=== PATIENT | male | born 1975 | race Caucasian/White ===

== ENCOUNTER 2021-02-16 04:23 | Inpatient (IN) ==
[2021-02-16] MEDS ORDERED: 0.9 % Sodium Chloride 1,000 ML IVC ONE (06:07)
[2021-02-16] MEDS ORDERED: Ketorolac 15 MG/ML VIAL IVP ONE (06:07)
[2021-02-16] MEDS ORDERED: Isovue-370 500 ML BOTTLE IVP ONE (06:07)
[2021-02-16 06:55] LABS: VBG HCO3 26 mEq/L (21-27); VBG PCO2 41 mmHg (41-51); VBG PH 7.41 pH Units (7.32-7.42); VBG PO2 35 mmHg (25-50)
[2021-02-16 07:23] LABS: Alanine Aminotransferase 50 Units/L (7-52); Albumin 3.9 g/dL (3.5-5.7); Albumin/Globulin Ratio 1.2 (1.1-2.2); Alkaline Phosphatase 99 Units/L (34-104); Aspartate Amino Transferase 67 Units/L (13-39); BUN/Creatinine Ratio 11 (6-26); Bilirubin,Direct 0.1 mg/dL (0.0-0.2); Bilirubin,Indirect 0.4 mg/dL (0.0-1.0); Bilirubin,Total 0.5 mg/dL (0.3-1.0); Blood Urea Nitrogen 11 mg/dL (6-20); Carbon Dioxide 26 mEq/L (23-29); Chloride 99 mEq/L (98-107); Globulin 3.2 g/dL (2.4-3.5); Glucose 102 mg/dL (70-105); Osmolality,Calculated 280 (280-300); Potassium 3.4 mEq/L (3.5-5.1); Sodium 135 mEq/L (136-145); Total Protein 7.1 g/dL (6.4-8.9); Troponin I 0.03 ng/mL (< 0.04); eGFR For African Americans > 60 (> 60); eGFR For Non-African Americans > 60 (> 60)
[2021-02-16 08:03] LABS: Basophils % 0.2 %; Eosinophils % 0.4 %; Hematocrit 36.7 % (37.5-50.1); Immature Granulocytes % 0.4 % (0-4); Lymphocytes # 0.9 K/mcL (0.6-4.6); Lymphocytes % 15.6 %; Mean Corpuscular HGB Conc 33.8 g/dL (31.6-35.5); Mean Corpuscular Hemoglobin 30.2 pg (28.0-33.3); Mean Corpuscular Volume 89.3 fL (83.0-100.0); Mean Platelet Volume 9.4 fL (9.4-12.4); Monocytes # 0.6 K/mcL (0.0-1.3); Monocytes % 9.9 %; Neutrophils # 4.1 K/mcL (1.6-8.9); Platelet Count 151 K/mcL (140-400); Red Blood Count 4.11 M/mcL (4.19-5.50); Red Cell Distribution Width 13.2 % (11.5-14.5); Segmented Neutrophils % 73.5 %; White Blood Count 5.6 K/mcL (4.3-11.1)
[2021-02-16 08:11] LABS: Hemoglobin 12.4 g/dL (12.9-16.9)
[2021-02-16 08:12] LABS: Platelet Estimate Normal (Normal); Reactive Lymphocytes Present (Not Present)
[2021-02-16] MEDS ORDERED: Saline Nasal Spray 44 ML BOTTLE NS PRN (12:19)
[2021-02-16] MEDS ORDERED: Remdesivir 200 MG in 0.9 % Sodium Chloride 100 ML IVPB ONE (12:27)
[2021-02-16] MEDS: Cholecalciferol (D-3) 1,000 UNIT (25MCG) TABLET PO SCH (13:27)
[2021-02-16] MEDS: Ipratropium 1 PUFF INHALER IH SCH ×3 (13:55→22:01)
[2021-02-16] MEDS: Artificial Tears SOLN 15 ML BOTTLE BOTH EYES SCH (21:42)
[2021-02-16] MEDS: Chlorhexidine Rinse 15 ML MOUTHWASH MM SCH (21:42)
[2021-02-17] MEDS ORDERED: *HR* HYDROcodone/Acet 5/325 mg TABLET PO PRN (00:28)
[2021-02-17] MEDS: Ipratropium 1 PUFF INHALER IH SCH ×2 (03:21→10:50)
[2021-02-17 04:40] LABS: Basophils % 0.5 %; Hematocrit 39.2 % (37.5-50.1); Immature Granulocytes % 0.7 % (0-4); Lymphocytes # 0.8 K/mcL (0.6-4.6); Lymphocytes % 19.6 %; Mean Corpuscular HGB Conc 33.2 g/dL (31.6-35.5); Mean Corpuscular Hemoglobin 29.7 pg (28.0-33.3); Mean Corpuscular Volume 89.7 fL (83.0-100.0); Mean Platelet Volume 9.8 fL (9.4-12.4); Monocytes # 0.4 K/mcL (0.0-1.3); Monocytes % 9.9 %; Neutrophils # 2.9 K/mcL (1.6-8.9); Platelet Count 198 K/mcL (140-400); Red Blood Count 4.37 M/mcL (4.19-5.50); Red Cell Distribution Width 13.2 % (11.5-14.5); Segmented Neutrophils % 69.3 %; White Blood Count 4.2 K/mcL (4.3-11.1)
[2021-02-17 04:58] LABS: INR 1.2; Prothrombin Time 13.6 Seconds (9.4-12.1)
[2021-02-17 04:59] LABS: Albumin 3.9 g/dL (3.5-5.7); Albumin/Globulin Ratio 1.2 (1.1-2.2); Bilirubin,Direct 0.1 mg/dL (0.0-0.2); Bilirubin,Indirect 0.4 mg/dL (0.0-1.0); Bilirubin,Total 0.5 mg/dL (0.3-1.0); Globulin 3.2 g/dL (2.4-3.5); Total Protein 7.1 g/dL (6.4-8.9)
[2021-02-17 05:02] LABS: % Iron Saturation 17 % (20-55); Alanine Aminotransferase 46 Units/L (7-52); Albumin 3.9 g/dL (3.5-5.7); Albumin/Globulin Ratio 1.2 (1.1-2.2); Alkaline Phosphatase 96 Units/L (34-104); Aspartate Amino Transferase 48 Units/L (13-39); BUN/Creatinine Ratio 12 (6-26); Bilirubin,Total 0.5 mg/dL (0.3-1.0); Blood Urea Nitrogen 12 mg/dL (6-20); Calcium 9.2 mg/dL (8.6-10.3); Carbon Dioxide 24 mEq/L (23-29); Chloride 102 mEq/L (98-107); Globulin 3.3 g/dL (2.4-3.5); Glucose 120 mg/dL (70-105); Iron 38 mcg/dL (65-175); Magnesium 2.1 mg/dL (1.6-2.6); Osmolality,Calculated 287 (280-300); Phosphorous 2.7 mg/dL (2.7-4.5); Potassium 3.5 mEq/L (3.5-5.1); Sodium 138 mEq/L (136-145); Total Protein 7.2 g/dL (6.4-8.9); Transferrin 163 mg/dL (203-362); eGFR For African Americans > 60 (> 60); eGFR For Non-African Americans > 60 (> 60)
[2021-02-17 05:05] LABS: C-Reactive Protein 81 mg/L (Less than 10)
[2021-02-17 05:20] LABS: Ferritin 890 ng/mL (20-250)
[2021-02-17 05:22] LABS: Platelet Estimate Normal (Normal); Reactive Lymphocytes Present (Not Present)
[2021-02-17 05:25] LABS: Folate 8.8 ng/mL (3.0-16.0)
[2021-02-17] MEDS ORDERED: *HR* Enoxaparin 40 MG/0.4 ML SYRINGE SQ SCH (06:00)
[2021-02-17 07:41] VITALS: TEMP 97.7; O2SAT 92
[2021-02-17] MEDS ORDERED: Multivit/Ca/Min/Fe/FA 1 TAB TABLET PO SCH (09:00)
[2021-02-17] MEDS: Artificial Tears SOLN 15 ML BOTTLE BOTH EYES SCH (10:16)
[2021-02-17] MEDS: Chlorhexidine Rinse 15 ML MOUTHWASH MM SCH (10:16)
[2021-02-17] MEDS: Cholecalciferol (D-3) 1,000 UNIT (25MCG) TABLET PO SCH (10:17)
[2021-02-17] MEDS: Remdesivir 100 MG in 0.9 % Sodium Chloride 100 ML IVPB SCH ×2 (10:19→10:42)
[2021-02-17 10:38] VITALS: BP 114/81; PULSE 82
== END 2021-02-17 15:37 | disposition home or self-care (01) | DRG 871 ==
LOC: EMEROOARM 04:23 → 3ANU 04:23 → SUATTDRO 13:02
PROVIDERS: ADMIT Internal Medicine; ATTEND Internal Medicine